=== PATIENT | male | born 1995 | race Hispanic/Latino ===

== ENCOUNTER → 2021-03-14 | Outpatient (REF) ==
--- NOTE | 2021-03-14 11:06 | REP ---
INDICATION: PAIN/SOB COMPARISON: None. TECHNIQUE: PA and lateral. FINDINGS: The mediastinum and cardiac silhouette are normal. The lung urrutia are clear and without acute consolidation, effusion, or pneumothorax. The skeletal structures are intact and normal. IMPRESSION: No acute cardiopulmonary process. <Electronically signed by Jose Hartman > 03/14/21 1104
--- NOTE | 2021-03-14 11:07 | REP ---
INDICATION: PAIN/SOB COMPARISON: None. TECHNIQUE: AP, lateral, bilateral oblique views right and left foot. FINDINGS: The osseous structures, surrounding soft tissues and joint spaces are symmetric and normal. There is no evidence for acute or healed injury. Surrounding soft tissues are unremarkable. No subcutaneous emphysema or radiodense foreign body. No overt arthritic changes are appreciated. IMPRESSION: Symmetric normal bilateral foot radiograph series. <Electronically signed by Jose Hartman > 03/14/21 0726
--- NOTE | 2021-03-14 11:08 | REP ---
INDICATION: PAIN/SOB COMPARISON: None. TECHNIQUE: AP, lateral, coned-down views of the lumbar spine. FINDINGS: Three views of the lumbosacral spine demonstrate satisfactory alignment and lordosis without acute fracture / compression injury or subluxation. No overt arthritic degenerative changes are appreciated. IMPRESSION: 1. Normal lumbosacral spine radiograph series <Electronically signed by Jose Hartman > 03/14/21 [id number]
== END ==
LOC: M PLAIMG 10:16
PROVIDERS: ATTEND Internal Medicine
DX: R06.02 Shortness of breath (principal)

== ENCOUNTER → 2021-06-21 | Outpatient (CLI) | payer OTHER | LOC: M RAD 06:44 | PROVIDERS: ATTEND Physician Assistant | DX: M47.814 Spondylosis without myelopathy or radiculopathy, thoracic region (principal); M51.36 Other intervertebral disc degeneration, lumbar region; M51.34 Other intervertebral disc degeneration, thoracic region; M41.34 Thoracogenic scoliosis, thoracic region ==